=== PATIENT | female | born 1980 | race Caucasian/White ===

== ENCOUNTER 2022-02-25 11:10 | Outpatient (CLI) | payer OTHER, SELFPAY ==
--- NOTE | 2022-02-25 11:21 | XR_ITS ---
WS: [id number] Cervical spine, 3 views, 02/25/2022 Clinical Data: R SIDED NECK PAIN Comparison: None. Findings: No compression fractures are seen. There is degenerative disc narrowing at C4-C5 and C5-C6. There are anterior osteophytes C4-C6. There is no prevertebral soft tissue swelling. The odontoid is unremarkable. The soft tissues of the neck and the lung apices are normal. XR/XR cervical spine 3V* [id number] Impression: 1. Anterior osteophytes C4-C6. 2. Degenerative disc narrowing at C4-C5 and C5-C6.
== END 2022-02-25 11:11 | disposition home or self-care (01) ==
LOC: RAD 11:15
PROVIDERS: PCP Family Medicine; Visit Provider Family Medicine
DX: M47.892 Other spondylosis, cervical region (principal); M25.78 Osteophyte, vertebrae; M54.2 Cervicalgia
CPT/HCPCS: 72040

== ENCOUNTER → 2022-03-17 15:19 | Outpatient (BNVA) | payer OTHER, SELFPAY | PROVIDERS: PCP Family Medicine; Referring Provider Family Medicine; Visit Provider Orthopaedic Surgery | DX: M54.2 Cervicalgia (principal) | CPT/HCPCS: 72040 ==

== ENCOUNTER 2022-05-19 09:39 | Outpatient (CLI) | payer OTHER, SELFPAY ==
--- NOTE | 2022-05-19 09:30 | MR_ITS ---
WS: [id number] MRI CERVICAL SPINE NONCONTRAST TECHNIQUE: Sagittal T1, T2 and STIR imaging. Axial T2, gradient, and fiesta imaging. CLINICAL INFORMATION: pain COMPARISON: None. FINDINGS: Straightening of the normal cervical lordosis. Cord signal is normal. No high-grade central canal randall rowing. Mild disc bulging C3-C5. C2-C3: Normal C3-C4: Mild disc osteophytic ridging. Mild RIGHT greater than LEFT foraminal narrowing. Mild facet ar thropathy. C4-C5: Mild disc osteophytic ridging. Moderate RIGHT and mild LEFT bony foraminal narrowing. Mild fac et arthropathy. Mild central canal stenosis. C5-C6: Disc osteophytic ridging. Moderate RIGHT and mild LEFT bony foraminal narrowing. Mild facet ar thropathy. Mild central canal stenosis. C6-C7: Disc osteophyte complex with endplate ridging. Mild RIGHT greater than LEFT bony foraminal randall rowing. Mild facet arthropathy. Spinal canal is patent. C7-T1: No significant disc bulging. Mild LEFT foraminal narrowing. Mild facet arthropathy. MR/MR cervical spin wo con* [id number] IMPRESSION: 1. Straightening of the normal cervical lordosis. Cord signal is normal. 2. Mild central canal stenosis C4-C5 and C5-C6 due to disc osteophyte complexe s. 3. Mild/moderate bony foraminal narrowing worse at RIGHT C3-C4, bilateral C4-C 5 worse on the RIGHT, and RIGHT C6-C7. 4. Mild facet arthropathy worse at C5-C6.
== END 2022-05-19 09:40 | disposition home or self-care (01) ==
PROVIDERS: PCP Family Medicine; Visit Provider Orthopaedic Surgery
DX: M48.02 Spinal stenosis, cervical region (principal); M25.78 Osteophyte, vertebrae; M47.812 Spondylosis without myelopathy or radiculopathy, cervical region
CPT/HCPCS: 72141

== ENCOUNTER → 2022-06-27 15:38 | Outpatient (BNVA) | payer OTHER, SELFPAY | PROVIDERS: PCP Family Medicine; Visit Provider Registered Nurse Neonatal Intensive Care | DX: R11.2 Nausea with vomiting, unspecified (principal) | CPT/HCPCS: 87426 ==

== ENCOUNTER 2025-01-22 09:36 | Outpatient (CLI) | payer OTHER, SELFPAY ==
--- NOTE | 2025-01-22 09:41 | MM_ITS ---
WS: [id number] BILATERAL SCREENING DIGITAL TOMOSYNTHESIS MAMMOGRAM WITH CAD HISTORY: SCREENING COMPARISON: 09/10/2014 Bilateral CC and MLO views with tomosynthesis and synthetic mammography submitted. Computer aided detection analyzed. Breast composition: There are scattered areas of fibroglandular density. No suspicious masses, microcalcifications or architectural distortion. MM/MM scr BI tomosynthesis [id number] IMPRESSION: BI-RADS: 1 - Negative. FOLLOW UP: 1 Year Follow-up
== END 2025-01-22 09:37 | disposition home or self-care (01) ==
LOC: RAD 09:37
PROVIDERS: PCP Family Medicine; Visit Provider Family Medicine
DX: Z12.31 Encounter for screening mammogram for malignant neoplasm of breast (principal); R92.323 Mammographic fibroglandular density, bilateral breasts
CPT/HCPCS: 77063; 77067

== ENCOUNTER 2025-05-06 19:49 | Emergency (ER) | payer OTHER, SELFPAY ==
--- OUTSIDE RECORDS SUMMARY | 2008-03-15 05:04 | XMS_ITS | Continuity of Care Document ---
Author Organization [facility] Address [address] [place] [id number] Phone Care Team Providers Care Facility Maintenance Helper Name Role Phone Iván Parada MD Unavailable Unavailable Medications Medication Instructions Dosage Effective Dates (start - stop) Status Comments OXYCODONE HCL (unknown strength) Not Available - Active Original Formula Tab - Active MOTRIN (unknown strength) Not Available - Active Procedures Procedure Date No Charge Due To Global Cystorrhaphy Wound/rupt; Simpl 08 Advance Directives Directive Yes / No Effective Date File Name No Information Encounters Encounter Description Practice Location Reason(s) For Visit Diagnoses Date Provider Providers Copied on Encounter [facility] , [address] [place] [address], [id number], tel:[phone] [facility] No Information August-0 5-200 8 Tal Minor. [address] [place] [address], [id number] , [place]. tel:[phone] Referring Provider: David Blake, [address] [place] [address], [id number]. tel:[phone] [facility] , [address] [place] [address], [id number], tel:[phone] [facility] No Information Dec-0 3-200 8 Tal Minor. [address] [place] [address], [id number] , . tel:[phone] Referring Provider: David Blake, [address] [place] [address], [id number]. tel:[phone] [facility] , [address] [place], [place] [address]e [facility], [place], [place], [id number], [place] tel:[phone] [facility] No Information 8 Tal Minor. [address] [place] [address], [address], [place], [place], [id number] , [place]. tel:[phone] Referring Provider: David Blake, [address] [facility] [address], [place], [address]. tel:[phone] Family History Family Member Type Diagnosis Age At Onset No Information Payers Payer name Insurance type Covered green party ID Authoriza tion(s) No Information Social History Type Description Quantity Date Captured Comments Sex Female Smoking Status No Information Chief Complaint And Reason For Visit No Information Reason For Referral Reason For Referral No Information History Of Present Illness Encounter Date Complaint History Of Prese nt Illness No Information Functional Status Date Functional Assessmen t No Information Instructions Date Instruction Additional Infor mation No Information Assessments Type Assessment Date No Information Patient Care Teams Name Effective Dates (start - stop) Status Members No Information
[2025-05-06 20:01] VITALS: BP 117/53; PULSE 72; RESP 16; TEMP 36.4; O2SAT 98; BMI 20.5
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
== END 2025-05-06 20:29 | disposition left against medical advice (07) ==
PROVIDERS: Emergency Provider Physician Assistant; PCP Family Medicine
DX: F10.129 Alcohol abuse with intoxication, unspecified (principal); Z72.0 Tobacco use
CPT/HCPCS: 99281